=== PATIENT | male | born 1975 | race Caucasian/White ===

== ENCOUNTER 2016-07-01 13:14 | Day surgery (SDC) | payer OTHER ==
[~2016-07-01] VITALS: Ht 185.4 cm; Wt 82.5 kg
[~2016-07-01 13:14] MED LIST: LEVO75CA2 PO; Sodium Chloride LOK Flush 10 mL Syringe IV PRN; fentaNYL-PF 50 mCg/mL 2 mL Inj IVPUSH PRN
[2016-07-01 13:49] VITALS: BP 114/80; PULSE 64; O2SAT 95
[2016-07-01] MEDS: 0.9% Sodium Chloride 1,000 ML IV SCH ×2 (13:56→15:01)
[2016-07-01 15:15] VITALS: BP 99/71; PULSE 57; RESP 17; O2SAT 94
[2016-07-01 15:26] VITALS: BP 103/68; PULSE 54; RESP 16; O2SAT 97
--- NOTE | 2016-07-01 18:25 | ENDO ---
[address] [address] ENDOSCOPY PROCEDURE PATIENT: ABDIFATAH CHURCHILL : 1975 MR#: [id number] ADMIT: 07/01/2016 JOB ID: [id number] PROCEDURE: Colonoscopy INDICATIONS: A 41-year-old male with 1-2 bowel movements per day. Occasionally they are loose, but he has noted some red blood on the outside of stools intermittently. Endoscopic interrogation is pursued. EQUIPMENT: PCF H 180 AL. SEDATION: Versed 5 mg, 100 mcg fentanyl. COMPLICATIONS: None identified. BOWEL PREPARATION: Excellent. PROCEDURE INFORMATION: After the risks and benefits were explained, written and verbal informed consent was obtained. The patient was brought into the endoscopy suite and placed into the left lateral decubitus position. Sedation was achieved as above and a digital rectal examination accomplished. No significant pathology appreciated. Minimal internal hemorrhoidal cushions were noted. The scope was introduced into the rectum and advanced under direct visualization to the level of the cecum, as identified by the appendiceal orifice and ileocecal valve. The terminal ileum was briefly accessed and the scope then slowly withdrawn while carefully examining the mucosa for any defects or lesions. Retroflexed views were accomplished in the rectum. The colon was decompressed and the scope removed the patient, who tolerated the procedure well. FINDINGS: No significant polyps, mass lesions, or inflammatory features identified throughout. Mild internal hemorrhoids were appreciated. There was some superficial vascularity associated with these hemorrhoidal cushions, probably the source for intermittent red blood seen per rectum. There was no suggestion of proctitis. No colitis. The terminal ileal mucosa appeared completely normal. ENDOSCOPIC DIAGNOSIS: 1. Visually normal colonoscopy. 2. Mild to moderate internal hemorrhoids. RECOMMENDATIONS: 1. Intermittent warm Epsom salt baths p.r.n. recurrent hemorrhoidal irritation. 2. Preparation-H cooling gel applied with a gloved index finger after a bowel movement or an [id number] Preparation H suppository may be very helpful at reducing hemorrhoidal irritation. 3. Follow up GI Clinic on a p.r.n. basis. CC: Ileana Fairbanks
== END 2016-07-01 23:59 | disposition home or self-care (01) ==
LOC: END 13:14 → EDUNIT# 14:00 → END 23:59
PROVIDERS: ATTEND Internal Medicine Gastroenterology
DX: K62.5 Hemorrhage of anus and rectum (principal); K64.8 Other hemorrhoids; E03.9 Hypothyroidism, unspecified
CPT/HCPCS: 45378; 99153; G0500; J2250; J7030